=== PATIENT | female | born 1990 | race Caucasian/White ===

== ENCOUNTER 2018-02-28 21:30 | Emergency (ER) | payer SELFPAY ==
[2018-02-28 21:31] VITALS: BP 153/93; PULSE 102; RESP 16; TEMP 37; O2SAT 99; BMI 45.1
--- NOTE | 2018-02-28 22:38 | ED.VISSUMM ---
- ER Visit Summary Date of Service: 02/28/18 Chief Complaint: Lip and right wrist swelling History of Present Illness: The patient is a 27 F who presents with mild swelling of the left upper lip as well as of the right wrist for 1 day. She states last week she had some swelling in her hands that has now resolved she does not remember which it was. She states she has been having similar episodes over the last year of random swelling in different parts of her body. She was seen here last year treated with prednisone and advised to follow-up with a automatic profile shaper operator. She states she did attempt to follow-up with her automatic profile shaper operator but due to her insurance they still wanted a lot of money upfront so she was unable to do this. She denies really any other associated symptoms. No fevers nausea vomiting diarrhea chest pain abdominal pain. Physical Examination: Heart rate 102 vitals otherwise unremarkable There is mild left upper lip swelling her airway is patent there is no tongue swelling she has no respiratory difficulty Heart is regular rhythm Lungs are clear There is some soft tissue swelling of the right wrist mostly along the anterior side she has active full range of motion without pain she is nontender she has brisk capillary refill normal sensation Test Results: Not indicated Emergency Department Course and Treatment: Patient presents with atraumatic right wrist swelling with a history of the same. She has very mild swelling of the left upper lip. This is been present all day. She is not on an RANCHO inhibitor. She has no tongue swelling. She has no breathing difficulty. She was given a dose of prednisone here as this is helped in the past. We will also place her on a prednisone burst. I again stressed the importance of outpatient follow-up. I explained that she needs further outpatient evaluation for things such as autoimmune disorders. I advised that she follow-up with a automatic profile shaper operator and possibly an refinery operator coking. She does not have a primary care physician. She was referred to Dr. Hernandez who is next on the no doc PCP referral list. She does understand that she should return here for new or worsening symptoms and was discharged home. Treatment Plan: [] Disposition: Discharge Impression: Lip swelling Atraumatic right wrist swelling This note was generated with paOnde dictation software. It may contain incorrect words, spelling, and punctuation that were not noted in review of the chart prior to signing ED Disposition - Plan for ED Patient: Chief Complaint: Edema Referrals: [facility] Doctor,Out of [Primary Care Provider] -
--- NOTE | 2018-02-28 22:42 | DCINST.ED_ITS ---
ED Disposition - Plan for ED Patient: Chief Complaint: Edema Instructions: ED Angioedema Referrals: [facility] Doctor,Out of [Primary Care Provider] - Cindy Hernandez MD [STAFF PHYSICIAN] -
--- NOTE | 2018-02-28 22:42 | ED.DCSUM_ITS ---
- ER Visit Summary Date of Service: 02/28/18 Chief Complaint: Lip and right wrist swelling History of Present Illness: The patient is a 27 F who presents with mild swelling of the left upper lip as well as of the right wrist for 1 day. She states last week she had some swelling in her hands that has now resolved she does not remember which it was. She states she has been having similar episodes over the last year of random swelling in different parts of her body. She was seen here last year treated with prednisone and advised to follow -up with a rivet driver. She states she did attempt to follow-up with her rivet driver but due to her insurance they still wanted a lot of money upfront so she was unable to do this. She denies really any other associated symptoms. No fevers nausea vomiting diarrhea chest pain abdominal pain. Physical Examination: Heart rate 102 vitals otherwise unremarkable There is mild left upper lip swelling her airway is patent there is no tongue swelling she has no respiratory difficulty Heart is regular rhythm Lungs are clear There is some soft tissue swelling of the right wrist mostly along the anterior side she has active full range of motion without pain she is nontender she has brisk capillary refill normal sensation Test Results: Not indicated Emergency Department Course and Treatment: Patient presents with atraumatic right wrist swelling with a history of the same. She has very mild swelling of the left upper lip. This is been present all day. She is not on an RANCHO inhibitor. She has no tongue swelling. She has no breathing difficulty. She was given a dose of prednisone here as this is helped in the past. We will also place her on a prednisone burst. I again stressed the importance of outpatient follow-up. I explained that she needs further outpatient evaluation for things such as autoimmune disorders. I advised that she follow-up with a rivet driver and possibly an nuclear powerplant mechanic. She does not have a primary care physician. She was referred to Dr. Hernandez who is next on the no doc PCP referral list. She does understand that she should return here for new or worsening symptoms and was discharged home. Treatment Plan: [] Disposition: Discharge Impression: Lip swelling Atraumatic right wrist swelling This note was generated with e27 dictation software. It may contain incorrect words, spelling, and punctuation that were not noted in review of the chart prior to signing ED Disposition - Plan for ED Patient: Chief Complaint: Edema Referrals: [facility] Doctor,Out of [Primary Care Provider] -
[2018-02-28] MEDS: predniSONE 20 MG Tablet 60 MG PO (23:03)
[2018-02-28 23:12] VITALS: BP 138/89; PULSE 89; RESP 18; O2SAT 98
== END 2018-02-28 23:13 | disposition home or self-care (01) ==
PROVIDERS: Emergency Provider Emergency Medicine
DX: R22.0 Localized swelling, mass and lump, head (principal); M79.89 Other specified soft tissue disorders; E28.2 Polycystic ovarian syndrome
CPT/HCPCS: 99283

== ENCOUNTER 2021-06-22 09:42 | Outpatient (CLI) | payer BC, SELFPAY ==
[2021-06-22 10:57] LABS: Absolute Lymphocyte Count 1.98 X10^3/uL (0.83-4.51); Absolute Neutrophil Count 6.3 X10^3/uL (2.0-7.7); Basophil# 0.03 X10^3/uL; Basophil% 0.3 % (0-1); Eosinophil# 0.09 X10^3/uL; Hematocrit 40.2 % (37-47); Hemoglobin 13.2 g/dL (12.0-15.0); Lymphocyte # 1.98 X10^3/ul (0.83-4.51); Lymphocyte % 22.1 % (19-41); Mean Corp Hgb Conc 32.8 g/dL (32-36); Mean Corpuscular Hgb 28.4 pg (27.0-32.0); Mean Corpuscular Volume 86.6 fL (81-99); Mean Platelet Vol. 9.1 fl (6.2-12.0); Monocyte# 0.55 X10^3/uL; Monocyte% 6.1 % (0-10); NRBC Flagged by Analyzer 0 % (0-5); Neutrophil # 6.27 X10^3/uL (2.7-7.7); Neutrophil % 70.1 % (47-70); Platelet Count 319 K/mm3 (150-450); RBC Distribution Width CV 12.7 % (11.6-14.6); RBC Distribution Width SD 40.1 fl (35.1-43.9); Red Blood Count 4.64 M/mm3 (4.2-5.4)
[2021-06-22 13:55] LABS: HIV - WCH Non-Reactive (Nonreactive); Hepatitis B Surface Antigen Non-Reactive (Nonreactive); Hepatitis C Antibody Non-Reactive (Nonreactive); Rubella IgG Reactive (Nonreactive); Syphilis Antibodies Non-reactive
[2021-06-23 22:07] LABS: Chlamydia By Nucleic Acid AMP Negative (Negative)
[2021-06-24 08:49] LABS: Gonococcus By Nucleic Acid AMP Negative (Negative)
== END 2021-06-22 23:59 | disposition short-term general hospital (02) ==
LOC: WOBLAB 09:43
PROVIDERS: Visit Provider Student in an Organized Health Care Education/Training Program
DX: Z34.81 Encounter for supervision of other normal pregnancy, first trimester (principal); Z11.3 Encounter for screening for infections with a predominantly sexual mode of transmission
CPT/HCPCS: 36415; 85025; 86703; 86762; 86780; 86803; 87086; 87088; 87340; 87491; 87591

== ENCOUNTER 2021-08-03 10:42 | Outpatient (CLI) | payer BC, SELFPAY ==
[2021-08-03 13:13] LABS: Glucose Challenge Gest 1H 50g 79 mg/dL (70-140)
== END 2021-08-03 23:59 | disposition home or self-care (01) ==
LOC: WOBLAB 10:43
PROVIDERS: Visit Provider Student in an Organized Health Care Education/Training Program
DX: Z34.81 Encounter for supervision of other normal pregnancy, first trimester (principal)
CPT/HCPCS: 36415; 82950

== ENCOUNTER → 2021-11-03 | Outpatient (CLI) | payer BC, SELFPAY ==
[2021-11-03 11:02] LABS: Hematocrit 36.9 % (37-47); Hemoglobin 12.4 g/dL (12.0-15.0); Mean Corp Hgb Conc 33.6 g/dL (32-36); Mean Corpuscular Volume 86.2 fL (81-99); Platelet Count 266 K/mm3 (150-450); RBC Distribution Width CV 12.2 % (11.6-14.6); RBC Distribution Width SD 38.4 fl (35.1-43.9); Red Blood Count 4.28 M/mm3 (4.2-5.4); White Blood Count 9.4 K/mm3 (4.4-11.0)
[2021-11-03 11:19] LABS: Glucose Challenge Gest 1H 50g 96 mg/dL (70-140)
== END | disposition home or self-care (01) ==
LOC: WOBLAB 10:30
PROVIDERS: Visit Provider Student in an Organized Health Care Education/Training Program
DX: Z34.83 Encounter for supervision of other normal pregnancy, third trimester (principal)
CPT/HCPCS: 36415; 82950; 85027

== ENCOUNTER → 2021-12-01 | Outpatient (CLI) | payer BC, SELFPAY | END | disposition home or self-care (01) | LOC: WOBLAB 10:28 | PROVIDERS: Visit Provider Obstetrics & Gynecology | DX: Z34.83 Encounter for supervision of other normal pregnancy, third trimester (principal) | CPT/HCPCS: 36415; 86850 ==

== ENCOUNTER → 2022-01-13 | Outpatient (CLI) | payer BC, SELFPAY ==
--- NOTE | 2022-01-13 08:01 | US_ITS ---
EXAM: US BIOPHYSICAL PROFILE WITHOUT NON-STRESS TESTING CLINICAL INDICATION: POLYHYDRAMNIOS TECHNIQUE: Real-time ultrasound of the maternal pelvis for biophysical profile evaluation with image documentation. This report was created using [employer] report generation technology. COMPARISON: None. FINDINGS: BREATHING MOVEMENTS: Present. Score 2/2. GROSS BODY MOVEMENTS: Present. Score 2/2. TONE: Present. Score 2/2. QUALITATIVE AMNIOTIC FLUID VOLUME: PRADEEP is 30.8 cm indicative of polyhydramnios. FETUS: Single live fetus identified in cephalic presentation with cardiac rate of 140 bpm. PLACENTA: Grade 1 posterior placenta without previa or abruption. US/Biophysical Prof W/O Non Stres IMPRESSION: Normal biophysical profile score. Polyhydramnios. Detailed anatomical evaluation recommended. Electronically Signed: Demetris Brizuela MD at 9:38 EDT ,
== END | disposition home or self-care (01) ==
LOC: OPUS 07:58
PROVIDERS: Visit Provider Student in an Organized Health Care Education/Training Program
DX: O40.3XX0 Polyhydramnios, third trimester, not applicable or unspecified (principal)
CPT/HCPCS: 76819

== ENCOUNTER → 2022-01-27 | Outpatient (CLI) | payer BC, SELFPAY | END | disposition home or self-care (01) | LOC: LABSPEC 15:08 | PROVIDERS: Visit Provider Student in an Organized Health Care Education/Training Program | DX: Z36.85 Encounter for antenatal screening for Streptococcus B (principal) | CPT/HCPCS: 87077; 87081; 87186 ==

== ENCOUNTER 2022-02-02 11:30 | Inpatient (IN) | payer BC, SELFPAY ==
[2022-02-02] VITALS (16 sets, daily range): BP systolic 91–154; BP diastolic 44–98; PULSE 86–109; RESP 12–23; TEMP 36.4–37.1; O2SAT 97–100; BMI 49.3
[2022-02-02] MEDS: Lactated Ringers 1,000 ML 999 ML IV (12:24)
[2022-02-02] MEDS: Acetaminophen 500 MG Tablet 1000 MG PO ×2 (12:35→23:54)
[2022-02-02 12:42] LABS: Absolute Lymphocyte Count 1.43 X10^3/uL (0.83-4.51); Absolute Neutrophil Count 8.2 X10^3/uL (2.0-7.7); Basophil# 0.02 X10^3/uL; Basophil% 0.2 % (0-1); Eosinophil# 0.08 X10^3/uL; Eosinophils% 0.7 % (0-5); Hematocrit 35.8 % (37-47); Hemoglobin 12.1 g/dL (12.0-15.0); Lymphocyte # 1.43 X10^3/ul (0.83-4.51); Lymphocyte % 13.4 % (19-41); Mean Corp Hgb Conc 33.8 g/dL (32-36); Mean Corpuscular Hgb 28.1 pg (27.0-32.0); Mean Corpuscular Volume 83.3 fL (81-99); Mean Platelet Vol. 9.6 fl (6.2-12.0); Monocyte# 0.84 X10^3/uL; Monocyte% 7.9 % (0-10); NRBC Flagged by Analyzer 0 % (0-5); Neutrophil # 8.18 X10^3/uL (2.7-7.7); Neutrophil % 76.7 % (47-70); Platelet Count 266 K/mm3 (150-450); RBC Distribution Width CV 13.3 % (11.6-14.6); RBC Distribution Width SD 39.8 fl (35.1-43.9); White Blood Count 10.7 K/mm3 (4.4-11.0)
--- NOTE | 2022-02-02 12:55 | HP.PCM.OB_ITS ---
History and Physical Date of Admission: 02/02/22 HPI: 31-year-old G1, P0 at 38/1 weeks, CASSANDRA 02/15/2022 by 7-week ultrasound, admitted for primary section for equivocal testing, breech position. Patient seen in the office today with BPP 6 out of 10, reactive NST. Sent to labor and delivery for section. Denies headache, vision changes, chest pain or shortness of breath, nausea or vomiting, diarrhea or constipation, fevers or chills. Reports movement, denies leaking of fluid or contractions or bleeding. complicated by: Class III obesity, polyhydramnios, hereditary angioedema PAPER MACHINE OPERATOR history: G1 current Medical history: 1. Hereditary angioedema, well controlled no recent issues Surgical history: 1. Arm repair after fracture 2. Tonsillectomy Family history: Noncontributory Social history: Denies tobacco, alcohol, drug use Allergies: 1. Ibuprofen causes angioedema Review of system: Negative otherwise stated above Physical exam: Blood pressure 115/73, heart rate 102, temp 98.7?F General: No acute distress HEENT: Normocephalic/atraumatic, PERRLA Cardiorespiratory: No increased effort Abdomen: Soft, gravid, nontender Extremities: Minimal edema Musculoskeletal strength 5 out of 5 throughout all extremities Neurologic: No focal deficits, cranial nerves II through XII grossly intact heart rate: 145/mod monse/+accel/no decel [place]: quiet panel O neg HIV negative Hepatitis B/hepatitis C negative Gonorrhea/chlamydia negative Rubella immune Syphilis negative GBS positive Labs on admission WBC 10.7, hemoglobin/hematocrit 12.1/35.8, platelets 266 Assessment/plan: 31-year-old G1, P0 at 38/1 weeks, CASSANDRA 02/15/2022 by 7-week ultrasound, admitted for primary section for equivocal testing, breech position. complicated by: Class III obesity, polyhydramnios, hereditary angioedema. -Admit to labor and delivery for primary section -Routine orders preoperative. 3g ancef, 500 mg azithromycin -Will need to avoid toradol/motrin post op due to allergy -BPP 6/10 in office. status at this time reassuring with moderate va riability and accelerations. Will proceed with section today in non emergent fashion. If status changes, will proceed sooner. All risks, benefits, alternatives discussed with patient. Risks include but are not limited to: Risk of bleeding to the point transfusion, infection, injury to surrounding tissue including bowel/bladder potentially requiring prolonged Hanson catheter use, VTE, ICU admission. Patient aware and consented. Consent signed. All questions answered. -Last ate at 0930 AM. Assessment & Plan Assessment/Plan (1) Engagement of fetus in breech position: (2) Obesity affecting , antepartum: (3) Hereditary angioedema:
[2022-02-02] MEDS: Lactated Ringers 1,000 ML 150 ML IV (13:21)
[2022-02-02] MEDS: Sodium Citrate/Citric Acid 30 ML UDC PO (16:48)
--- NOTE | 2022-02-02 18:48 | EX.PCM.OBRPT ---
Details Operative Information Date of Procedure: 02/02/22 Pre-Operative Diagnosis: Franklin intrauterine , equivocal testing, breech position, polyhydramnios Post-Operative Diagnosis: Franklin intrauterine , equivocal testing, polyhydramnios Indications Narrative: 31-year-old G1 at 38/1 weeks plan for primary section for equivocal testing, breech position, polyhydramnios. All risk benefits, alternatives discussed with patient. Risk include but are not limited to: Risk of bleeding twin transfusion, infection, injury to surrounding tissue including bowel/bladder requiring prolonged Hanson catheter use, VTE, ICU admission. Patient were consented. Procedure Type: low transverse Type of Anesthesia: Epidural Antibiotic Given: Ancef 3 grams IV x1 and Zithromax 500 mg/5 mL X1 Estimated Blood Loss: 800 cc Fluids Replaced: 1000 cc Findings Description of Procedure: Procedure: Patient taken to the operating room. Spinal anesthesia attempted and completed. Placed in supine position with lateral tilt, Hanson catheter placed. Patient tested and was not numb. Epidural then placed. Patient placed in the supine position with a left lateral tilt. Prepped and draped in the usual sterile fashion. Pfannenstiel skin incision made with scalpel and carried down through underlying subcutaneous tissue. Fascia nicked on either side of the midline and extended bilaterally with Herbert scissors. Jatin clamps placed on the superior fascial edge which was tented up and underlying rectus muscles dissected off bluntly and sharply at midline using Herbert scissors. Jatin clamps placed in the inferior fascial edge which was tented up and underlying rectus muscles were dissected off in a similar fashion. Hemostat you superiorly to separate rectus muscles at midline. Peritoneum entered bluntly and extended bluntly. Bladder blade placed. Uterus palpated, no head palpated in lower uterine segment. Low transverse uterine incision made with scalpel and extended bluntly. Large amount of fluid on amniotomy. Fetus found in cephalic position. Hand placed into the uterine cavity and head elevated to the level of the hysterotomy. Fundal pressure applied. Vacuum assistance required for delivery of head, delivered with 1 pull. No nuchal cord. Body delivered. Cord clamped and cut. Baby handed to nursing. Manual extraction of placenta. Uterus exteriorized and cleared of all clots. Hysterotomy closed with a running stitch followed by a second horizontal imbricating stitch. 1 [id number] placed for hemostasis. Hysterotomy hemostatic. Bladder blade removed. Uterus replaced into the abdominal cavity. Bladder blade replaced. Hysterotomy closure still hemostatic on inspection. Bladder blade removed. Fascia closed with a running stitch. Subcutaneous tissue closed with a running stitch. Skin closed with running subcuticular stitch. At the end of the procedure all needle, lap, sponge counts correct. Urine output: 100 cc clear urine A Gender: Male (1 minute): 8 (5 minute): 9
[2022-02-02] MEDS: Oxytocin 30 units/NS 500 ml 30 UNITS/500 ML IV.SOLN 167 UNITS IV (19:00)
[2022-02-02] MEDS: HYDROmorphone 1 MG/ML Syringe IV ×2 (20:04→23:55)
[2022-02-02] MEDS: Lactated Ringers 1,000 ML 100 ML IV (22:14)
--- NOTE | 2022-02-02 22:28 | NURSING ---
pt epidural catheter removed tip intact at 2215, pt tolerated well
[2022-02-03] VITALS (14 sets, daily range): BP systolic 120–137; BP diastolic 66–89; PULSE 88–112; RESP 16–18; TEMP 36.4–37.2; O2SAT 95–99
[2022-02-03] MEDS: oxyCODONE 5 MG Tablet PO ×4 (04:36→21:22)
[2022-02-03] MEDS: Acetaminophen 500 MG Tablet 1000 MG PO ×3 (04:36→18:30)
[2022-02-03 05:56] LABS: Hematocrit 29.5 % (37-47); Hemoglobin 9.8 g/dL (12.0-15.0); Mean Corp Hgb Conc 33.2 g/dL (32-36); Mean Corpuscular Hgb 28.2 pg (27.0-32.0); Mean Platelet Vol. 9.3 fl (6.2-12.0); Platelet Count 193 K/mm3 (150-450); RBC Distribution Width CV 13.2 % (11.6-14.6); RBC Distribution Width SD 40.5 fl (35.1-43.9); Red Blood Count 3.47 M/mm3 (4.2-5.4); White Blood Count 10.4 K/mm3 (4.4-11.0)
[2022-02-03 06:12] LABS: ALB/GLOB Ratio 0.6 RATIO (0.9-2.4); AST(SGOT) 12 U/L (15-37); Alanine Aminotransfer ALT/SGPT 11 U/L (13-56); Albumin, Serum 1.9 g/dL (3.2-5.0); Alkaline Phosphatase 49 U/L (45-117); Anion Gap 4 (5-15); BUN 6 mg/dL (7-18); BUN/Creat Ratio 12.6 RATIO (10-20); Chloride 108 mmol/L (98-107); Creatinine, Serum 0.48 mg/dL (0.55-1.02); EST Glomerular Filtration Rate 163 mL/min (>60); Est Glom Filt Rate - Afr Amer 198 mL/min (>60); Estimated Creatinine Clearance 135.54 ml/min; Globulin 3.1 g/dL (2.2-4.2); Glucose 98 mg/dL (74-106); Potassium 3.8 mmol/L (3.5-5.1); Sodium Level 138 mmol/L (136-145)
--- NOTE | 2022-02-03 07:03 | NURSING ---
late entry due to pt care: pt declined getting up when RN requested pt ambulate with 0100 vitals, pt requests ambulation with next set of vitals around 0300
--- NOTE | 2022-02-03 07:21 | PCM.PN.OB ---
Subjective Subjective No overnight complaints Objective Data Objective Data Vital Signs: Vital Signs Temp Pulse Resp BP Pulse Ox O2 Del Method 98.9 F 105 H 18 123/78 H 95 Room Air 02/03/22 03:10 02/03/22 06:41 02/03/22 06:41 02/03/22 03:10 02/03/22 06:41 02/03/22 06:41 Oxygen Delivery Method Room Air Weight: 269 lb 13.533 oz Body Mass Index (BMI) 49.3 Intake & Output: Intake and Output for Last 24 Hours 02/01/22 02/02/22 02/03/22 23:59 23:59 23:59 Intake Total 2654.05 / 2654.05 751.67 / 751.67 Output Total 300 / 300 Balance 2354.05 / 2354.05 751.67 / 751.67 Lab / Micro Data Result Diagrams: 02/03/22 05:45 02/03/22 05:45 Labs: Laboratory Results - last 24 hr 02/02/22 12:25: WBC 10.7, RBC 4.30, Hgb 12.1, Hct 35.8 L, MCV 83.3, MCH 28.1, MCHC 33.8, RDW Std Deviation 39.8, RDW Coeff of Rose 13.3, Plt Count 266, MPV 9.6, Immature Gran % (Auto) 1.100 H, Neut % (Auto) 76.7 H, Lymph % (Auto) 13.4 L, [place] % (Auto) 7.9, Eos % (Auto) 0.7, Baso % (Auto) 0.2, Absolute Neuts (auto) 8.2 H, Absolute Lymphs (auto) 1.43, Nucleated RBC % 0 02/02/22 12:25: Blood Type O NEGATIVE, Antibody Screen NEGATIVE 02/02/22 20:10: Screen NEGATIVE, Baby's Blood Type O POSITIVE, Baby's JASMIN NEGATIVE 02/03/22 05:45: WBC 10.4, RBC 3.47 L, Hgb 9.8 L, Hct 29.5 L, MCV 85.0, MCH 28.2, MCHC 33.2, RDW Std Deviation 40.5, RDW Coeff of Rose 13.2, Plt Count 193, MPV 9.3 02/03/22 05:45: Sodium 138, Potassium 3.8, Chloride 108 H, Carbon Dioxide 26.0, Anion Gap 4 L, BUN 6 L, Creatinine 0.48 L, Estim Creat Clear Calc 135.54, Est GFR (MDRD) Af Amer 198, Est GFR (MDRD) Non-Af 163, BUN/Creatinine Ratio 12.6, Glucose 98, Calcium 8.0 L, Total Bilirubin 0.30, AST 12 L, ALT 11 L, Alkaline Phosphatase 49, Total Protein 5.0 L, Albumin 1.9 L, Globulin 3.1, Albumin/Globulin Ratio 0.6 L Micro: Microbiology 02/02/22 12:25 Nasal Secretion SARS-CoV-2 Antigen (Rapid) - Final Physical Exam Const alert, oriented x3, no apparent distress, average body habitus, healthy appearing and well nourished HEENT normocephalic and moist oral mucous membranes Eyes PERRL Neck full ROM Resp normal respiratory effort, no retractions and no use of accessory muscles GI GI Narrative: Soft, nontender, bandage clean dry and intact Extremity normal to inspection, full ROM and no clubbing, cyanosis or edema Neuro moves all extremities and no focal motor deficits Psych mental status grossly normal, affect normal, speech normal and activity/motor behavior normal Assessment & Plan (1) delivery delivered: PLAN: Postop day 1 status post primary section for breech. Breast-feeding. Pain well controlled. Likely discharge home tomorrow
--- NOTE | 2022-02-03 07:25 | NURSING ---
report given to Jess Loomis RN who is assuming care of pt at this time
[2022-02-03] MEDS: Enoxaparin 40 MG/0.4 ML Syringe SC (09:59)
[2022-02-04] MEDS: Acetaminophen 500 MG Tablet 1000 MG PO ×3 (00:39→12:21)
[2022-02-04] MEDS: oxyCODONE 5 MG Tablet PO ×2 (02:26→08:34)
[2022-02-04 02:30] VITALS: BP 120/59; PULSE 92; RESP 16; TEMP 36.7
--- NOTE | 2022-02-04 07:11 | PCM.DC.BLA ---
Discharge Summary Date of Admission: 02/02/22 Date of Discharge: 02/04/22 Summary: Patient arrived on 02/02/2022 with equivocal testing, polyhydramnios and breech at 38 weeks scheduled for primary section. Primary section on 02/02/2022. Subsequent routine postoperative recovery. Discharge home on 02/04/2022 Meaningful Use Info Meaningful Use Diagnoses (Choose all that apply): None applicable Discharge Plan Admission Admit Date/Time: 02/02/22 11:30 Primary Reason for Your Visit: Primary section for breech Attending Provider: Ginger Magallanes Primary Care Provider: Care PhysicianCarissa Primary Instructions Additional Instructions / Restrictions: Regular diet. Okay to shower. No tub baths for 2 weeks. No lifting over 25 pounds for 2 to 3 weeks. No intercourse for 4 to 6 weeks. Call if fevers, chills, chest pain, shortness of breath. Follow-up 2 weeks postoperatively, 4 to 6 weeks Discharge Orders/Prescriptions Prescriptions: New oxycodone 5 mg Tablet 5 mg PO Q4H PRN PRN (Reason: Pain Score 7-10) 4 Days Qty: 24 0RF Continued prenat.vits,[place],eof-qkph-ombah Tablet 1 tab PO DAILY Referrals / Follow Up: Care Physician,No Primary [Primary Care Provider] - Disposition Disposition (needs filled in before D/C Order can be placed): Home, Self Care
--- NOTE | 2022-02-04 07:13 | PCM.PN.OB ---
Subjective Subjective No overnight complaints. Pain well controlled Objective Data Objective Data Vital Signs: Vital Signs Temp Pulse Resp BP Pulse Ox O2 Del Method 98.0 F 92 16 120/59 L 98 Room Air 02/04/22 02:30 02/04/22 02:30 02/04/22 02:30 02/04/22 02:30 02/03/22 16:16 02/04/22 02:30 Oxygen Delivery Method Room Air Weight: 269 lb 13.533 oz Body Mass Index (BMI) 49.3 Intake & Output: Intake and Output for Last 24 Hours 02/02/22 02/03/22 02/04/22 23:59 23:59 23:59 Intake Total 2654.05 / 2654.05 1951.67 / 1951.67 Output Total 300 / 300 1350 / 1350 Balance 2354.05 / 2354.05 601.67 / 601.67 Lab / Micro Data Result Diagrams: 02/03/22 05:45 02/03/22 05:45 Micro: Microbiology 02/02/22 12:25 Nasal Secretion SARS-CoV-2 Antigen (Rapid) - Final Physical Exam Const alert, oriented x3, no apparent distress, average body habitus, healthy appearing and well nourished HEENT normocephalic and moist oral mucous membranes Eyes PERRL Resp normal respiratory effort, no retractions and no use of accessory muscles GI GI Narrative: Soft, nontender, bandage clean dry and intact Extremity normal to inspection, full ROM and no clubbing, cyanosis or edema Neuro moves all extremities and no focal motor deficits Psych mental status grossly normal, affect normal, speech normal and activity/motor behavior normal Assessment & Plan (1) delivery delivered: PLAN: Postop day 2 status post primary section for breech. Breast-feeding. Pain well controlled. 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
[2022-02-04 08:40] VITALS: BP 123/85; PULSE 99; RESP 15; TEMP 36.6
[2022-02-04] MEDS: Senna/Docusate Sodium 1 Tablet PO (10:40)
[2022-02-04] MEDS: Enoxaparin 40 MG/0.4 ML Syringe SC (10:40)
--- NOTE | 2022-02-04 12:31 | NURSING ---
Reviewed and agreed with Tigre RN charting.
== END 2022-02-04 12:27 | disposition home or self-care (01) | DRG 787 ==
PROVIDERS: Admitting Provider Student in an Organized Health Care Education/Training Program; Visit Provider Student in an Organized Health Care Education/Training Program
DX: O32.1XX0 Maternal care for breech presentation, not applicable or unspecified (principal); O99.12 Other diseases of the blood and blood-forming organs and certain disorders involving the immune mechanism complicating childbirth; D84.1 Defects in the complement system; E66.01 Morbid (severe) obesity due to excess calories; O40.3XX0 Polyhydramnios, third trimester, not applicable or unspecified; O99.214 Obesity complicating childbirth; Z3A.38 38 weeks gestation of pregnancy; Z37.0 Single live birth; O76 Abnormality in fetal heart rate and rhythm complicating labor and delivery
CPT/HCPCS: 59025; 59050; 80053; 85025; 85027; 85461; 86850; 86900; 86901; 87426; 90384; 94762; 99218; 99251; J7120; G0378; G0463; J2790

== ENCOUNTER 2022-02-07 23:18 | Outpatient (CLI) | payer BC, SELFPAY ==
[2022-02-07 23:42] VITALS: BP 132/75; PULSE 87; TEMP 37.1; O2SAT 98
[2022-02-07 23:44] VITALS: PULSE 87; O2SAT 98
[2022-02-07 23:47] VITALS: BMI 45.3
[2022-02-07 23:57] VITALS: BP 120/63; PULSE 91
[2022-02-08 00:12] VITALS: BP 114/61; PULSE 88
[2022-02-08] MEDS: Acetaminophen/Butalbital/Caffe 1 Tablet PO (00:19)
[2022-02-08 00:30] LABS: Absolute Lymphocyte Count 1.68 X10^3/uL (0.83-4.51); Absolute Neutrophil Count 6.9 X10^3/uL (2.0-7.7); Basophil# 0.03 X10^3/uL; Basophil% 0.3 % (0-1); Eosinophil# 0.24 X10^3/uL; Eosinophils% 2.5 % (0-5); Hematocrit 33.2 % (37-47); Hemoglobin 10.9 g/dL (12.0-15.0); Lymphocyte # 1.68 X10^3/ul (0.83-4.51); Lymphocyte % 17.7 % (19-41); Mean Corp Hgb Conc 32.8 g/dL (32-36); Mean Corpuscular Hgb 27.8 pg (27.0-32.0); Mean Corpuscular Volume 84.7 fL (81-99); Mean Platelet Vol. 8.9 fl (6.2-12.0); Monocyte# 0.59 X10^3/uL; Monocyte% 6.2 % (0-10); NRBC Flagged by Analyzer 0 % (0-5); Neutrophil # 6.87 X10^3/uL (2.7-7.7); Neutrophil % 72.6 % (47-70); Platelet Count 329 K/mm3 (150-450); RBC Distribution Width CV 13.2 % (11.6-14.6); RBC Distribution Width SD 40.5 fl (35.1-43.9); Red Blood Count 3.92 M/mm3 (4.2-5.4); White Blood Count 9.5 K/mm3 (4.4-11.0)
[2022-02-08 00:39] LABS: ALB/GLOB Ratio 0.7 RATIO (0.9-2.4); AST(SGOT) 12 U/L (15-37); Alanine Aminotransfer ALT/SGPT 30 U/L (13-56); Albumin, Serum 2.5 g/dL (3.2-5.0); Alkaline Phosphatase 29 U/L (45-117); Anion Gap 8 (5-15); BUN 19 mg/dL (7-18); BUN/Creat Ratio 29.1 RATIO (10-20); Chloride 106 mmol/L (98-107); Creatinine, Serum 0.65 mg/dL (0.55-1.02); EST Glomerular Filtration Rate 113 mL/min (>60); Est Glom Filt Rate - Afr Amer 137 mL/min (>60); Estimated Creatinine Clearance 100.09 ml/min; Globulin 3.7 g/dL (2.2-4.2); Glucose 103 mg/dL (74-106); Potassium 3.8 mmol/L (3.5-5.1); Protein, Total 6.2 g/dL (6.4-8.2); Sodium Level 138 mmol/L (136-145)
[2022-02-08 00:40] LABS: Protein, Urine (Random) < 6.0 mg/dL (<11.9)
[2022-02-08 02:09] VITALS: BP 124/78; PULSE 88
[2022-02-08 13:09] LABS: Color, Urine Yellow (Yellow); Glucose, Dipstick Normal (Normal); Ketone-Dipstick Negative (Negative); Leukocyte Esterase-Dipstick 25 /ul (Negative); Nitrite-Dipstick Positive (Negative); Occult Blood-Urine 150 /ul (Negative); Protein-Dipstick Negative (Negative); Urine Bilirubin Dipstick Negative (Negative); Urine Clarity Clear (Clear); Urine Urobilinogen Normal (Normal)
--- NOTE | 2022-02-08 18:32 | PN.OBGYN_ITS ---
Subjective Subjective 31-year-old G1, P1 postop day 5 status post primary section. Presenting with headache that is unrelenting with Tylenol. No visual disturbances, right upper quadrant pain. Had emesis x2 per over the phone. Objective Data Objective Data Vital Signs: Vital Signs Temp Pulse BP Pulse Ox 98.7 F 88 124/78 H 98 02/07/22 23:42 02/08/22 02:09 02/08/22 02:09 02/07/22 23:44 Weight: 112.491 kg Body Mass Index (BMI) 45.3 Lab / Micro Data Attestation: I reviewed the patient's lab results. Result Diagrams: 02/08/22 00:00 02/08/22 00:00 Labs: Laboratory Results - last 24 hr 02/08/22 00:00: WBC 9.5, RBC 3.92 L, Hgb 10.9 L, Hct 33.2 L, MCV 84.7, MCH 27.8, MCHC 32.8, RDW Std Deviation 40.5, RDW Coeff of Rose 13.2, Plt Count 329, MPV 8.9, Immature Gran % (Auto) 0.700, Neut % (Auto) 72.6 H, Lymph % (Auto) 17.7 L, [place] % (Auto) 6.2, Eos % (Auto) 2.5, Baso % (Auto) 0.3, Absolute Neuts (auto) 6.9, Absolute Lymphs (auto) 1.68, Nucleated RBC % 0 02/08/22 00:00: Urine Color Yellow, Urine Clarity Clear, Urine pH 7.0, Ur Specific [place] 1.010, Urine Protein Negative, Urine Glucose (UA) Normal, Urine Ketones Negative, Urine Occult Blood 150 H, Urine Nitrite Positive H, Urine Bilirubin Negative, Urine Urobilinogen Normal, Ur Leukocyte Esterase 25 H 02/08/22 00:00: Sodium 138, Potassium 3.8, Chloride 106, Carbon Dioxide 24.0, Anion Gap 8, BUN 19 H, Creatinine 0.65, Estim Creat Clear Calc 100.09, Est GFR (MDRD) Af Amer 137, Est GFR (MDRD) Non-Af 113, BUN/Creatinine Ratio 29.1 H, Glucose 103, Calcium 9.0, Total Bilirubin 0.40, AST 12 L, ALT 30, Alkaline Phosphatase 29 L, Total Protein 6.2 L, Albumin 2.5 L, Globulin 3.7, Albumin/Globulin Ratio 0.7 L 02/08/22 00:00: U Random Total Protein < 6.0, Urine Creatinine 19.90, Protein/Creatinin Ratio TNP Assessment & Plan (1) Headache: PLAN: headache. Preeclampsia labs within normal limits, blood pressure within normal limits. No other signs or symptoms of preeclampsia. Headache worsen with standing up. Patient had spinal then epidural for c- section. RN did discuss with anesthesia possibility of blood patch. Patient felt improved with Fioricet. Given the option to discuss with anesthesia in morning about possible blood patch versus going home with prescription to be sent today. Patient elected to be discharged home. Increase p.o. fluid hydration, stretching massage, Fioricet as needed.
== END 2022-02-08 02:25 | disposition home or self-care (01) ==
LOC: WPOUT 23:31 → WP 23:32
PROVIDERS: Visit Provider Student in an Organized Health Care Education/Training Program
DX: O99.893 Other specified diseases and conditions complicating puerperium (principal); R51.9 Headache, unspecified
CPT/HCPCS: 36415; 80053; 81002; 82570; 84156; 85025; 99218; G0378

== ENCOUNTER 2023-11-27 02:26 | Emergency (ER) | payer BC, SELFPAY ==
[2023-11-27 02:26] VITALS: BP 122/83; PULSE 52; RESP 18; TEMP 36.3; O2SAT 98; BMI 44.0
[2023-11-27] MEDS: Carbamide Peroxide 15 ML Bottle 5 DRP OTIC (02:52)
--- NOTE | 2023-11-27 03:04 | EX.ED.VIS.UR ---
HPI HPI - URI History of Present Illness Chief Complaint: Ear Problem Informant: patient Narrative Narrative: Patient has had gradual onset progressively worsening discomfort in her right ear for the past week. She states she has had some allergy or mild cold symptoms for a little longer than that. She is having trouble hearing out of the right ear. She denies any fevers, chills, systemic symptoms, states that touching or lying on her right external ear is painful and it seems swollen externally. She had swimmer's ear several times in the past, she has not been swimming lately but she tried some nbic-npz-jcjxhoe swimmer's ear drops that did not seem to help. She has not experienced any otorrhea. ROS ROS ED Constitutional Constitutional ED: Denies chills or fever(s) ENT ENT ED: Reports ear pain right, nasal congestion and rhinorrhea; Denies sore throat Cardiovascular Cardiovascular: Denies chest pain or palpitations Respiratory/Chest Respiratory/Chest: Denies cough or dyspnea Gastrointestinal Gastrointestinal: Denies abdominal pain, diarrhea, nausea or vomiting Genitourinary Genitourinary ED: Denies dysuria or hematuria Musculoskeletal Musculoskeletal: Denies myalgias or neck pain Integumentary Denies abscess or rash Neurologic Neurologic: Denies headache(s), paresthesias or weakness Psychiatric Psychiatric: Denies depression or suicidal thoughts Endocrine Endocrinology: Denies polydipsia or polyuria [facility] Medical History (Updated 11/27/23 @ 03:[address] Hakn Jordan MD) Autoimmune disease Polyhydramnios Home Medications ?Medication ?Instructions ?Recorded ?Last Taken ?Type prenat.vits,[place],wxf-xzwn-sxjbt 1 tab PO DAILY 02/02/22 01/27/22 22:00 History 1 tab oxycodone 5 mg tablet 5 mg PO Q4H PRN PRN Pain Score 02/03/22 Unknown Rx 7-10 4 days #24 tabs gxhkylwf-dthldqrun-ixbqdqhtr 3.5 4 drp RIGHT EAR TID 10 days #10 mL 11/27/23 Unknown Rx mg/mL-10,000 unit/mL-1 % ear solution Allergy/AdvReac Type Severity Reaction Status Date / Time ibuprofen Allergy Angioedema Verified 11/27/23 02:30 NSAIDS (Non-Steroidal Allergy Swelling Verified 11/27/23 02:30 Anti-Inflamma Surgical History (Updated 11/27/23 @ 03:[address] Hank Jordan MD) Hx of tympanostomy tubes History of surgery Social History Smoking Status: Never smoker EXAM Physical Exam Const Vital Signs: 11/27/23 02:26 Temperature 97.3 F L Temperature Source Temporal Pulse Rate 52 L Respiratory Rate 18 Blood Pressure 122/83 H Blood Pressure Mean 96 Pulse Ox 98 Oxygen Delivery Method Room Air Positive well nourished and well developed General Appearance ED: well developed and NAD HEENT Reports moist mucous membranes HEENT Narrative: Left TM and EAC normal, without discomfort on manipulation of the pinna/tragus. On the right, there is pain with gently pushing on the tragus, and less pain with manipulation of the pinna. The EAC is erythematous and mildly swollen, she has significant discomfort with otoscopic examination. There is hard white foreign material within the EAC, occluding visualization of the tympanic membrane. There is no liquid discharge, but this could be cerumen mixed with a small amount of discharge. NO mastoid tenderness/swelling/erythema. normocephalic and atraumatic Throat: Negative for posterior oropharynx abnormal Eyes PERRL and EOMs intact bilaterally Neck no lymphadenopathy, supple and no meningeal signs Resp normal respiratory effort and clear to auscultation bilaterally Cardio no murmurs Rate: regular rate Rhythm: regular rhythm Neuro oriented x3, CN's II-XII intact bilaterally and no sensory deficits noted Sensorium / Orientation: alert Motor Exam: strength 5/5 throughout Skin Lesions: no lesions Rashes: no rashes MDM MDM MDM Narrative Medical decision making narrative: I think this is an otitis externa, but in order to confirm that this is not an otitis media with or without perforation, I had nursing place Debrox drops in her ear and gently irrigate some of the material out so that I could visualize her tympanic membrane. After doing this, she said she could hear a little better, and on reevaluation I can see the TM it does not appear to be bulging and erythematous, the EAC does appear to be erythematous with some mild swelling and tenderness with otoscopic examination still, all consistent with otitis externa. Given prescription for antibiotic drops and advised to follow-up if not improving after 3 to 4 days. Discharge Plan Triage Chief Complaint: Ear Problem ED Provider: Hank Jordan Dx/Rx/DC Orders Clinical Impression: Acute otitis externa of right ear Instructions: ED External Ear Infection (Adult) Prescriptions: New mvyfonrh-vflcwhvvo-YC 3.5-10,000-1 mg/mL-unit/mL-% solution 4 drp RIGHT EAR TID 10 Days Qty: 10 0RF No Action prenat.vits,[place],gnx-lzlm-copwi Tablet 1 tab PO DAILY oxycodone 5 mg Tablet 5 mg PO Q4H PRN PRN (Reason: Pain Score 7-10) 4 Days Qty: 24 0RF Primary Care Provider: Care Physician,No Primary Referrals: Doctor,Your [Non-Staff] - 1 Week if not improving Print Language: Turkmen Disposition Disposition: Home, Self Care
== END 2023-11-27 04:34 | disposition home or self-care (01) ==
PROVIDERS: Emergency Provider Emergency Medicine; Visit Provider Emergency Medicine
DX: H60.91 Unspecified otitis externa, right ear (principal)
CPT/HCPCS: 99283